=== PATIENT | female | born 1975 | race Caucasian/White ===

== ENCOUNTER → 2019-10-18 08:08 | Outpatient (CLI) | payer BC, SELFPAY ==
--- NOTE | ~2019-10-18 | MMUS_ITS ---
EXAMINATION: MM diagnostic lydia LT w libby, US breast LT limited HISTORY: Follow-up left breast masses TECHNIQUE: Additional 3-D tomosynthesis images of the left breast were performed and synthetic 2-D im ages were generated. CAD analysis was submitted and interpreted. High resolution left breast ultrasou nd was performed. COMPARISON: None FINDINGS: MAMMOGRAPHIC FINDINGS: The breasts are extremely dense, which lowers the sensitivity of mammography. There is a benign-appea ring circumscribed radiolucent mass lower outer quadrant of the left breast measuring 1 cm greatest d imension. No suspicious calcifications or architectural distortion. ULTRASOUND: Left breast ultrasound: At 4:00 4 cm from the nipple, there is a 10 x 9 x 8 mm cyst to the mass seen on mammogram. At 5:00, 3 cm from the nipple, there is a 6 mm cyst. No suspicious masses to suggest ma lignancy. IMPRESSION: 1. No evidence for malignancy in the left breast. 2. Routine yearly screening mammogram and regular clinical breast examination are recommended. BI-RADS Category 2: Benign finding(s). Reviewed, dictated and finalized at location A. SPORTATION MODELER IMPRESSION: 1. No evidence for malignancy in the left breast. 2. Routine yearly screening mammogram and regular clinical breast examination a re recommended. BI-RADS Category 2: Benign finding(s).
== END ==
PROVIDERS: PCP Family Medicine; Visit Provider Obstetrics & Gynecology Gynecology
DX: R92.8 Other abnormal and inconclusive findings on diagnostic imaging of breast (principal)
CPT/HCPCS: 76642; 77061; 77065; G0279

== ENCOUNTER → 2020-06-12 16:20 | Outpatient (CLI) | payer BC, SELFPAY ==
--- NOTE | ~2020-06-12 | MM_ITS ---
EXAMINATION: MM screening lydia BI w libby HISTORY: Screening mammogram TECHNIQUE: Craniocaudal and mediolateral oblique 3-D tomosynthesis images were obtained and synthetic 2-D images were generated. CAD analysis was submitted and interpreted. COMPARISON: 10/18/2019 diagnostic left digital mammogram and limited left breast ultrasound 04/17/2019 diagnostic left digital mammogram and limited left breast ultrasound 04/12/2019 bilateral digital screening mammogram 02/14/2018, 12/03/2016 bilateral digital screening mammogram examinations BREAST PARENCHYMAL COMPOSITION: The breasts are heterogeneously dense, which may obscure small masses . FINDINGS: Numerous bilateral benign calcifications are again noted. There is an approximately 10 mm circumscribed opacity in the posterior aspect of the lower outer left breast corresponding to the 4:00 10 mm cyst noted on 10/18/2019 limited left breast ultrasound examin ation. The mammographic features are benign and the lesion is stable since 10/18/2019. There is no nakita dence of suspicious mass, calcification, or architectural distortion to suggest malignancy in either breast. There has been no suspicious interval change. IMPRESSION: 1. No mammographic evidence of malignancy. 2. Recommend routine screening mammography in one year. BI-RADS Category 2: Benign finding(s). Reviewed, dictated and finalized at location A.
== END ==
PROVIDERS: PCP Family Medicine; Visit Provider Obstetrics & Gynecology Gynecology
DX: Z12.31 Encounter for screening mammogram for malignant neoplasm of breast (principal)
CPT/HCPCS: 77063; 77067

== ENCOUNTER 2020-09-12 02:55 | Emergency (ER) | payer BC, SELFPAY ==
--- NOTE | ~2020-09-12 | XR_ITS ---
EXAMINATION: XR chest 1V portable EXAM DATE: 09/12/2020 03:28 INDICATION: Midsternal chest pain. TECHNIQUE: Portable AP frontal chest x-ray was obtained. Comparison is made to prior examination from 10/16/2014. FINDINGS: The lungs are clear. There are no pleural effusions. The cardiomediastinal silhouette is within normal limits. There is no pneumothorax suspected. The bones and soft tissues are unremarkab le. IMPRESSION: No acute cardiopulmonary findings. Reviewed, dictated and finalized at location A. E TAMPER
[2020-09-12 03:01] VITALS: BP 124/61; PULSE 95; RESP 20; TEMP 36.8; O2SAT 100
[2020-09-12 03:07] VITALS: PULSE 98
--- NOTE | 2020-09-12 03:08 | ECG_ITS ---
Measurements Intervals [place] Rate: 91 P: 45 VT: 105 QRS: 63 QRSD: 92 T: 30 QT: 351 QTc: 433 Interpretive Statements SINUS RHYTHM WITH SHORT VT INTERVAL BORDERLINE T WAVE ABNORMALITY- ANT/INF LEADS BASELINE ARTIFACT- II, III BORDERLINE ECG Electronically Signed On 09-12-2020 7:13:03 WEBSPHERE DEVELOPER by Aram Gongora D.O.
--- NOTE | 2020-09-12 03:12 | ED.CHESTPAIN ---
HPI - Chest Pain General Chief Complaint: Chest Pain Stated Complaint: sob Time Seen by Provider: 09/12/20 02:58 Source: patient Mode of arrival: ambulatory Limitations: no limitations History of Present Illness HPI narrative: A 45-year-old female presents to the emergency department [facility] with complaints of a burning chest pain going from her upper abdomen to her neck. Patient does state that there was some associated shortness of breath with this. She states that she has never had anything like this before. Patient does note that this started after she went to bed. Patient does note that she drinks 3 white claws before going to bed. She denies any cardiac history. Patient also denies any known cardiac history in her family members. She does state that she was also feeling quite anxious and thinks that anxiety may have been contributing. Related Data Home Medications Medication Instructions Recorded Confirmed diclofenac sodium PO 09/12/20 Allergies Allergy/AdvReac Type Severity Reaction Status Date / Time propoxyphene AdvReac Mild NAUSEA AND Verified 09/12/20 03:19 VOMITING Review of Systems Review of Systems: Narrative: CONSTITUTIONAL: Denies fever, chills, or sweats. EYES: Denies visual changes, redness, or discharge. ENT: Denies rhinorrhea, congestion, sore throat, or otalgia. CARDIOVASCULAR: Denies palpitations, or edema. Endorses burning chest pain RESPIRATORY: Denies cough or dyspnea. GASTROINTESTINAL: Denies abdominal pain, nausea, vomiting, or diarrhea. GENITOURINARY: Denies dysuria or hematuria. SKIN: Denies rash or itching. MUSCULOSKELETAL: Denies back pain, joint pain, or myalgia. NEUROLOGIC: Denies headache, numbness, dizziness, or weakness. PSYCHIATRIC: Denies anxiety or depression. [facility] Family History Family History Father Hypertension Social History Social History Smoking status: Never smoker Second hand tobacco smoke exposure: No Alcohol intake: current Gender identity (if verbalized by the patient): Female Exam Narrative: Exam Narrative: GENERAL: Well-appearing, well-nourished, and in no acute distress. HEAD: Normocephalic, atraumatic. EYES: PERRLA and EOMI. ENT: Nares clear, no rhinorrhea or epistaxis. Mucous membranes moist. Oropharynx without tonsillar hypertrophy exudate or other lesions. Bilateral TMs pearly sanchez nonbulging NECK: Supple. No adenopathy or masses. No carotid bruits or JVD CHEST: Clear to auscultation. No respiratory distress. No wheezes rales or rhonchi HEART: Regular rate and rhythm. No murmur heard. Normal peripheral pulses. ABDOMEN: Soft, nontender, nondistended, normal active bowel sounds. EXTREMITIES: Normal range of motion. No edema. SKIN: Warm, dry, no rash. NEURO: No focal deficits. Alert and oriented x3. PSYCH: Normal mood and affect. Course Reevaluation(s) Reevaluation #1: Patient resting comfortably at this time. Provided care update and reevaluation. She noted after the medication she is feeling somewhat better. Informed her of her negative work-up. Did discuss gastritis, likely secondary to long-term NSAID use. Patient was given recommendations and instructed to follow-up with her primary care physician. Time: 03:59 Vital Signs Vital signs: Vital Signs Temperature 36.8 C 09/12/20 03:01 Pulse Rate 95 09/12/20 03:01 Respiratory Rate 20 09/12/20 03:01 Blood Pressure 124/61 09/12/20 03:01 Pulse Oximetry 100 09/12/20 03:01 Temperature 36.8 C 09/12/20 03:01 Pulse Rate 98 09/12/20 03:07 Respiratory Rate 20 09/12/20 03:01 Blood Pressure 124/61 09/12/20 03:01 Pulse Oximetry 100 09/12/20 03:01 MDM - Chest Pain MDM Narrative Medical decision making narrative: In brief this 45-year-old female presented to the emergency department with complaints of chest pain and some shortness of breath. Af
[2020-09-12] MEDS: BELLADONNA ALK/PHENOB ELIX 10 ML, MAG HYDROX/ALUMINUM HYD/SIMETH 30 ML, LIDOCAINE HCL 2... PO (03:20)
[2020-09-12 03:25] LABS: Basophils Absolute Auto 0.1 K/mm3 (0.0-0.1); Basophils Percent Auto 0.7 % (0.2-1.2); Eosinophils Absolute Auto 0.2 K/mm3 (0-0.3); Eosinophils Percent Auto 2.4 % (0-4.4); Immature Granulocyte Absolute 0.01 K/mm3 (0.00-0.031); Immature Granulocyte Percent A 0.1 % (0-0.5); Lymphocytes Absolute Auto 2.52 K/mm3 (0.9-3.2); Lymphocytes Percent Auto 35.4 % (18.3-44.2); Mean Corpuscular HGB Conc 32.4 g/dl (32-36); Mean Corpuscular Hemoglobin 28.6 pg (26-34); Mean Corpuscular Volume 88.1 fl (80-100); Mean Platelet Volume 11.2 fl (7.4-10.4); Monocytes Absolute Auto 0.5 K/mm3 (0.1-0.6); Monocytes Percent Auto 6.9 % (2.6-8.5); Neutrophils Absolute Auto 3.9 K/mm3 (1.3-6.7); Neutrophils Percent Auto 54.5 % (45.5-73.1); Platelet Count Result 196 k/mm3 (150-375); Red Cell Distribution Width 12.8 % (11.5-14.5); White Blood Count 7.1 K/mm3 (4.5-10.0)
[2020-09-12 03:39] LABS: Alanine Aminotransferase 19 U/L (4-35); Albumin Level 4.1 g/dL (3.5-5.1); Alkaline Phosphatase 61 U/L (38-126); Anion Gap 6 mmol/L (8-16); Aspartate Amino Transferase 26 U/L (14-36); Bilirubin,Total 0.3 mg/dL (0.2-1.3); Blood Urea Nitrogen 21 mg/dL (7-17); Calcium 8.6 mg/dL (8.4-10.2); Carbon Dioxide 29 mmol/L (22-30); Chloride 102 mmol/L (98-107); Estimated CRCL calculation 60 ml/min; Estimated Glomerular Filt Rate > 60; Glucose 111 mg/dL (65-105); Lipase 170 U/L (23-300); Potassium 3.5 mmol/L (3.4-5.0); Sodium 137 mmol/L (137-145)
--- NOTE | 2020-09-12 03:49 | PC.NURSE ---
Pt states her chest pain has resolved, states continues to have slight burning to her throat. Made aware of pending results.
[2020-09-12 03:51] LABS: Troponin I < 0.012 ng/mL (0.000-0.034)
== END 2020-09-12 04:02 | disposition home or self-care (01) ==
PROVIDERS: Emergency Provider Emergency Medicine; PCP Family Medicine
DX: R07.9 Chest pain, unspecified (principal); K21.9 Gastro-esophageal reflux disease without esophagitis; R94.31 Abnormal electrocardiogram [ECG] [EKG]
CPT/HCPCS: 36415; 71045; 80053; 83690; 84484; 85025; 93005; 99284; A9270

== ENCOUNTER → 2021-03-06 14:29 | Outpatient (CLI) | payer BC, SELFPAY ==
--- NOTE | ~2021-03-06 | MMUS_ITS ---
EXAMINATION: MM diagnostic lydia BI w libby, US breast RT limited HISTORY: Pain of the lower inner right breast TECHNIQUE: Craniocaudal, mediolateral, and mediolateral oblique 3-D tomosynthesis images of the brefarhad ts were performed and synthetic 2-D images were generated. CAD analysis was submitted and interpreted . High resolution limited right breast ultrasound was performed. COMPARISON: 06/12/2020, 10/18/2019, 04/17/2019, 04/12/2019, 02/14/2018 BREAST PARENCHYMAL COMPOSITION: The breasts are extremely dense, which lowers the sensitivity of mamm ography. FINDINGS: MAMMOGRAPHIC FINDINGS: There is no evidence of suspicious mass, calcification, or architectural distortion in either breast to suggest malignancy. There has been no suspicious interval change. No mammographic correlate is yvon ntified for the reported right breast pain. Scattered benign-appearing calcifications are present. ULTRASOUND: There is no evidence of focal abnormal solid or cystic mass in the vicinity of the patient's right br east pain. IMPRESSION: 1. No specific mammographic or sonographic correlate is identified for the patient's right breast arjun n. Further evaluation at this time should be based on clinical assessment. Continued follow-up physic al examination is recommended. 2. Recommend routine screening mammography in one year. BI-RADS Category 2: Benign finding(s). Reviewed, dictated and finalized at location A. IMPRESSION: 1. No specific mammographic or sonographic correlate is identified for the ebenezer ent's right breast pain. Further evaluation at this time should be based on cli nical assessment. Continued follow-up physical examination is recommended. 2. Recommend routine screening mammography in one year. BI-RADS Category 2: Benign finding(s).
== END ==
PROVIDERS: Visit Provider Nurse Practitioner
DX: N64.4 Mastodynia (principal)
CPT/HCPCS: 76642; 77062; 77066; G0279

== ENCOUNTER 2021-06-25 00:46 | Day surgery (SDC) | payer BC, SELFPAY ==
[2021-06-16 15:08] VITALS: BMI 26.1
--- NOTE | 2021-06-25 12:10 | WPDGICN ---
Assessment and Plan Assessment and plan (1) Family history of colonic polyps: Code(s): Z83.71 - Family history of colonic polyps Status: Acute Assessment and Plan: Patient presents for screening colonoscopy. She has a family history of colon polyps in her mother. Plan is for colonoscopy now may need to consider this at 5 years in the future given this history. Further recommendations will be given after endoscopy. GI Consult Note Consult date/time: 06/25/21 12:10 HPI: Leila Lee is a 46 year old female Presents for screening colonoscopy. She reports that her current weight appetite bowel movements normal. She denies abdominal pain. She has had no bleeding. Family history is significant that her mother had colon polyps. Patient presents today for screening colonoscopy. Review of Systems Review of Systems: All systems reviewed & are unremarkable except as noted in HPI and below PMFSH Family History Family History Father Hypertension Social History Social History Smoking status: Never smoker Second hand tobacco smoke exposure: No Alcohol intake: current Drinks per week: 3 Substance use: never Substance use type: does not use Living arrangements: with family Gender identity (if verbalized by the patient): Female Spiritual care concerns: No Meds Home Medications and Allergies Home Medications Medication Instructions Recorded Confirmed Type No Home Medications 06/16/21 06/16/21 History Allergies Allergy/AdvReac Type Severity Reaction Status Date / Time propoxyphene AdvReac Mild NAUSEA AND Verified 06/25/21 11:57 VOMITING Exam Narrative: Physical exam reveals patient be alert. Vital signs stable. HEENT exam is unremarkable. Patient is anicteric. Lungs are clear to auscultation and percussion. Heart is without murmur or extra sounds. Abdominal exam bowel sounds present soft nontender with no hepatosplenomegaly. Digital external rectal exam normal.
[2021-06-25 12:30] VITALS: BP 116/67; PULSE 89; RESP 16; TEMP 36.2; O2SAT 100; BMI 23.6
[2021-06-25] MEDS: LACTATED RINGERS 1,000 ML 150 ML IV CONT (12:37)
--- NOTE | 2021-06-25 12:45 | WPDANESEPPF ---
Anes - Initial Pre Proc Eval Procedure: Operation Date: 06/25/21 13:00 Proposed Procedures p Screening Colonoscopy - Christiano Vicente MD Date/Time: 06/25/21 12:45 Surgeon: Christiano Vicente MD Pre Op Diagnosis: neoplasm screening Patient Data Age: 46 Gender: F Height: 1.63 m Weight: 62.5 kg Last Vital Signs Temp 36.2 C L 06/25/21 12:30 Pulse 89 06/25/21 12:30 Resp 16 06/25/21 12:30 BP 116/67 06/25/21 12:30 Pulse Ox 100 06/25/21 12:30 Allergies Allergy/AdvReac Type Severity Reaction Status Date / Time propoxyphene AdvReac Mild NAUSEA AND Verified 06/25/21 11:57 VOMITING Home Medications Medication Instructions Recorded Confirmed Type No Home Medications 06/16/21 06/16/21 History Patient hx anesthesia problems: none Family hx anesthesia problems: none Results Review: All pre-operative results and documents have been reviewed as part of the pre-operative evaluation. PMFSH Family History Family History Father Hypertension Social History Social History Smoking status: Never smoker Second hand tobacco smoke exposure: No Alcohol intake: current Drinks per week: 3 Substance use: never Substance use type: does not use Living arrangements: with family Gender identity (if verbalized by the patient): Female Sexual Orientation (if Verbalized by the Patient): Straight or Heterosexual Spiritual care concerns: No Anes - Eval Final PreProcedure Day of Procedure 06/25/21 12:45 Patient weight: normal Heart: regular rate and rhythm Lungs: clear to auscultation and normal air movement Airway: Mallampati scale class II Neurological: alert and oriented Last oral intake: >/= 8 hours ASA classification: I Emergent: no Anesthetic plan: proceed Anesthesia type and monitoring: general GIVS Results Review: All pre-operative results and documents have been reviewed as part of the pre-operative evaluation. Informed Consent: The patient's anesthetic plan and its attendant risks and benefits were discussed with the patient/family/POA. Questions were solicited and answers provided to the satisfaction of the patient/family/POA.
[2021-06-25 14:02] VITALS: BP 91/53; PULSE 85; RESP 16; O2SAT 100
[2021-06-25 14:12] VITALS: BP 93/59; PULSE 77; RESP 16; O2SAT 100
[2021-06-25 14:23] VITALS: BP 98/64; PULSE 76; RESP 19; O2SAT 100
== END 2021-06-25 14:35 | disposition home or self-care (01) ==
PROVIDERS: PCP Family Medicine; Visit Provider Internal Medicine Gastroenterology
PROC: 0DJD8ZZ Inspection of Lower Intestinal Tract, Via Natural or Artificial Opening Endoscopic (ICD-10-PCS; CPT 45378; principal; 2021-06-25 13:00)
DX: Z12.11 Encounter for screening for malignant neoplasm of colon (principal); D12.5 Benign neoplasm of sigmoid colon; K64.8 Other hemorrhoids; Z83.71 Family history of colonic polyps
CPT/HCPCS: 45385; 88305; J2704; J7120

== ENCOUNTER → 2022-04-02 15:25 | Outpatient (CLI) | payer BC, SELFPAY ==
--- NOTE | ~2022-04-02 | MM_ITS ---
EXAMINATION: MM screening [facility] BI w libby HISTORY: Screening mammogram TECHNIQUE: Craniocaudal and mediolateral oblique 3-D tomosynthesis images were obtained and synthetic 2-D images were generated. CAD analysis was submitted and interpreted. COMPARISON: 03/06/2021, 06/12/2020, 10/18/2019, 04/17/2019, 04/12/2019 BREAST PARENCHYMAL COMPOSITION: The breasts are extremely dense, which lowers the sensitivity of mamm ography. FINDINGS: Scattered benign-appearing calcifications are present. Waxing and waning bilateral breast m asses are consistent with benign findings. There is no suspicious mass, calcification, or architectur al distortion to suggest malignancy in either breast. There has been no suspicious interval change. IMPRESSION: 1. No mammographic evidence of malignancy. 2. Recommend routine screening mammography in one year. BI-RADS Category 2: Benign finding(s). Reviewed, dictated and finalized at location A.
== END ==
PROVIDERS: PCP Family Medicine; Visit Provider Obstetrics & Gynecology Gynecology
DX: Z12.31 Encounter for screening mammogram for malignant neoplasm of breast (principal)
CPT/HCPCS: 77063; 77067

== ENCOUNTER → 2022-10-15 12:29 | Outpatient (CLI) | payer BC, SELFPAY ==
--- NOTE | ~2022-10-15 | US_ITS ---
US breast BI complete DATE: 10/15/2022 12:59 INDICATION: Waxing and waning bilateral breast masses consistent with benign findings reported on 03/22 bilateral screening mammogram examination TECHNIQUE: Real-time imaging of both complete breasts including all 4 quadrants and subareolar areas COMPARISON: 04/02/2022 bilateral screening mammogram FINDINGS: No suspicious mass or shadowing of either breast is detected. Bilateral renal cysts: Right breast: 12:00 1 cm from nipple: 6 x 9 x 10 mm cyst 3:00 3 cm from nipple: 4 x 6 mm cyst 5:00 1 cm from nipple: 3 x 5 mm cyst Prominent subareolar ducts Left breast: 12:00 1 cm from nipple: 6.9 mm cyst 2:00 subareolar area: 12 x 18 mm simple cyst 4:00 6 cm from nipple: 1 x 1.5 cm cyst 11:00 2 cm from nipple: 5.5 x 7.7 mm cyst 3.5 mm subareolar cyst IMPRESSION: BI-RADS Category 2: Benign Recommendation: Routine mammographic screening Reviewed, dictated and finalized at Location A. Reviewed, dictated and finalized at location A. D HANDLER
== END ==
PROVIDERS: PCP Family Medicine; Visit Provider Advanced Practice Midwife
DX: R92.2 Inconclusive mammogram (principal)
CPT/HCPCS: 76641

== ENCOUNTER → 2023-07-18 13:02 | Outpatient (CLI) | payer BC, SELFPAY ==
--- NOTE | ~2023-07-18 | US_ITS ---
EXAMINATION: US pelvic complete DATE: 07/18/2023 13:24 INDICATION: Abnormal uterine bleeding Comparison: 12/15/2012 TECHNIQUE: Multiple transabdominal and endovaginal sonographic images of the pelvis performed. FINDINGS: The uterus measures 10 x 4.9 x 5.2 cm. There is a complex 1.6 x 1.6 x 1.9 cm endometrial ma ss. The endometrial complex measures 2.2 cm. The right ovary measures 2.7 x 2.1 x 3.1 cm and the left ovary measures 1.7 x 1.1 x 1.5 cm. There ar e small follicles in each ovary. Normal doppler signal in both ovaries. There is no free fluid in the pelvis. There are no abnormal masses seen on either side. IMPRESSION: 1. Thickened heterogeneous endometrium containing 1.9 cm mass. Considerations include submucosal fibr oid, polyp and endometrial carcinoma. Recommend clinical correlation. Reviewed, dictated and finalized at location B. ISION FARMING COORDINATOR IMPRESSION: 1. Thickened heterogeneous endometrium containing 1.9 cm mass. Considerations i nclude submucosal fibroid, polyp and endometrial carcinoma. Recommend clinical correlation.
== END ==
PROVIDERS: PCP Advanced Practice Midwife; Visit Provider Advanced Practice Midwife
DX: N93.8 Other specified abnormal uterine and vaginal bleeding (principal); N92.0 Excessive and frequent menstruation with regular cycle
CPT/HCPCS: 76856

== ENCOUNTER 2023-09-05 01:05 | Day surgery (SDC) | payer OTHER, SELFPAY ==
--- NOTE | 2023-08-24 13:05 | SUR.PREOP ---
Report to the Outpatient Waiting Room, entrance under the green pavilion located off [facility], at time 0815 on date 09/05/23. Planned Procedure Time: 1015. Time changes happen often and if your time is changed the preop area will call you the afternoon before. - You and your visitor will be asked to self-screen and do not enter if you have any COVID symptoms. - A mask is optional within the hospital at this time. Patients may have clear liquids (water, carbonated beverages, clear teas, apple juice) until 3 hours prior to surgery with a maximum of 20 ounces. - NO CLEAR LIQUIDS AFTER 0715 - No food from midnight until time of surgery - Infants may have breast milk until 4 hours before surgery, formula 6 hours prior to surgery. - Children will be allowed to drink immediately following surgery. If applicable, please bring a bottle or sippy cup to assist with drinking. Juice, water, soda, and popsicles are readily available. For infants on formula, please bring formula the day of surgery. Pacifiers are allowed. Take the following medications with a SIP of water the morning of surgery: N/A DO NOT STOP ANY OF YOUR OTHER PRESCRIPTION MEDICATIONS PRIOR TO SURGERY ?EXCEPT THE FOLLOWING Medications to discontinue per physician VITAMIN Date to take last dose 09/01/23 Please no make-up, nail nauruan, hairspray, perfume, deodorant, or body powder the day of surgery. No jewelry (including any body piercings) or valuables the day of surgery, leave them at home. Please take a shower or bath the night before, or the morning of, surgery with an antibacterial soap. Wear comfortable, loose fitting clothing. Children are encouraged to wear pajamas. - Jewelry must be removed prior to entering the operating room. Rings and piercings that are not removed may be cut off. - The hospital will not accept responsibility for valuables. - Please leave all valuables, including medications, at home the day of surgery. If you are going home after surgery, a licensed oil transport driver must drive you home. - NO public transportation without another adult if you receive anesthesia. - We recommend that an adult stay with you for 24 hours following discharge. - We also recommend that you do not drive, make important decision, drink alcoholic beverages, or take any drugs that were not prescribed by your health care provider for at least 24 hours after your discharge time. For Pediatric surgeries, we recommend two adults accompany the child home. Follow any additional instructions given to you from your surgeon. If you or anyone in your household have experienced Covid symptoms in the past week, please notify your surgeon or the nurse liaison at the phone number below for possible testing. Telephone instructions given to JARRED MIRZA and asked if any additional questions and then verbalized understanding. Patient advised to call surgeon office or pre surgery nurse liaison [phone] if any additional questions.
[2023-08-24 13:20] VITALS: BMI 29.2
--- NOTE | 2023-09-05 07:34 | WPDHPUPDATE1 ---
History and Physical Update Update Date/Time: 09/05/23 07:34 History and Physical has been reviewed, including an updated exam of the patient. There are NO changes in the patient's condition. Risks, benefits, and alternatives have been discussed and questions answered. Patient agrees to proceed with procedure.
--- NOTE | 2023-09-05 07:34 | PM.HPGS ---
History of Present Illness History of Present Illness Consent: Risks, benefits, and alternatives have been discussed and questions answered. Patient agrees to proceed with procedure. Chief complaint: Menorrhagia Narrative: Leila Lee is a 48 year old female with irregular and heavy cycles over the past several months. Pelvic ultrasound shows a 1.5x1.9cm complex endometrial mass. It was recommended to undergo D&C hysteroscopy for further evaluation. Patient voices understanding and agrees to proceed. Review of Systems Review of Systems: not repeated day of surgery; patient states no changes in status PMFSH Past Medical History Medical History (Updated 09/05/23 @ 07:39 by Jaci Art MD) GERD without esophagitis Prediabetes Spontaneous x3 D&C required x2 Vitamin D deficiency Surgical History Surgical History (Updated 09/05/23 @ 07:38 by Jaci Art MD) deliv NOS-unsp X2 History of bilateral tubal ligation 2012 with History of D&C 2006 and 2011 Family History Family History Father Hypertension Mother Thyroid disease Social History Social History Smoking status: Never smoker Second hand tobacco smoke exposure: No Alcohol intake: current Drinks per week: 3 Substance use: never Substance use type: does not use Lack of Transportation: No Lack of Food: Never True Current Housing: I Have Housing Concerned About Future Housing: No Difficulty Paying Gas/Electric Bills: No Difficulty Paying for Meds: No Currently Unemployed: No Education: Bachelor's Degree Difficulty w/ Childcare or Family Care: No Living arrangements: with family Occupation/Education: occupation Gender identity (if verbalized by the patient): Female Sexual Orientation (if Verbalized by the Patient): Straight or Heterosexual Spiritual care concerns: No Agree to blood products: Yes Meds Home Medications and Allergies Home Medications Medication Instructions Recorded Confirmed Type cholecalciferol (vitamin D3) 125 250 mcg PO .QOD 08/03/23 08/24/23 History mcg (5,000 unit) capsule omeprazole 40 mg capsule,delayed 40 mg PO DAILY #90 caps 08/03/23 08/24/23 Rx release loratadine 10 mg tablet (Claritin) 10 mg PO DAILY 08/24/23 08/24/23 History Allergies Allergy/AdvReac Type Severity Reaction Status Date / Time propoxyphene AdvReac Mild NAUSEA AND Verified 08/03/23 15:22 VOMITING Exam Const: General: healthy appearing and alert Orientation/consciousness: patient oriented x3 Resp: Effort & Inspection: normal respiratory effort GI: GI Palp: Yes Soft to palpation, No Tenderness to palpation present (GI) and No Palpable mass present : External Female Exam: normal external appearance Speculum Exam - Vagina: normal appearance of the vagina and normal vaginal discharge Speculum Exam - Cervix: normal appearance of the cervix Bimanual exam- vagina & uterus: uterine size normal and consistency normal Bimanual Exam- Adnexa, other: normal adnexae and No adnexal tenderness Neuro: General: patient oriented x3 Assessment and Plan Assessment and plan (1) Menorrhagia: Code(s): N92.0 - Excessive and frequent menstruation with regular cycle Status: Acute Assessment and Plan: plan to proceed with D&C hysteroscopy
[2023-09-05 07:49] VITALS: BP 113/71; PULSE 90; RESP 18; TEMP 36.2; O2SAT 100
[2023-09-05] MEDS: ACETAMINOPHEN 500 MG TABLET 1000 MG PO (08:01)
--- NOTE | 2023-09-05 08:54 | WPDANESEPPF ---
Anes - Initial Pre Proc Eval Procedure: Operation Date: 09/05/23 09:30 Proposed Procedures p Hysteroscopy Dilation and Curettage - Jaci Art MD Date/Time: 09/05/23 08:54 Surgeon: Jaci Art MD Pre Op Diagnosis: Menorrhagia Patient Data Age: 48 Gender: F Height: 1.63 m Weight: 78.6 kg Last Vital Signs Temp 36.2 C L 09/05/23 07:49 Pulse 90 09/05/23 07:49 Resp 18 09/05/23 07:49 BP 113/71 09/05/23 07:49 Pulse Ox 100 09/05/23 07:49 O2 Del Method Room Air 09/05/23 07:49 Allergies Allergy/AdvReac Type Severity Reaction Status Date / Time propoxyphene AdvReac Mild NAUSEA AND Verified 09/05/23 07:47 VOMITING Home Medications Medication Instructions Recorded Confirmed Type cholecalciferol (vitamin D3) 125 250 mcg PO .QOD 08/03/23 09/05/23 History mcg (5,000 unit) capsule omeprazole 40 mg capsule,delayed 40 mg PO DAILY #90 caps 08/03/23 09/05/23 Rx release loratadine 10 mg tablet (Claritin) 10 mg PO DAILY 08/24/23 09/05/23 History Patient hx anesthesia problems: none Family hx anesthesia problems: none Results Review: All pre-operative results and documents have been reviewed as part of the pre-operative evaluation. [facility], [facility] Past Medical History Medical History (Updated 09/05/23 @ 07:39 by Jaci Art MD) GERD without esophagitis Prediabetes Spontaneous x3 D&C required x2 Vitamin D deficiency Surgical History Surgical History (Updated 09/05/23 @ 07:38 by Jaci Art MD) deliv NOS-unsp X2 History of bilateral tubal ligation 2012 with History of D&C 2006 and 2011 Family History Family History Father Hypertension Mother Thyroid disease Social History Social History Smoking status: Never smoker Second hand tobacco smoke exposure: No Alcohol intake: current Drinks per week: 3 Substance use: never Substance use type: does not use Lack of Transportation: No Lack of Food: Never True Current Housing: I Have Housing Concerned About Future Housing: No Difficulty Paying Gas/Electric Bills: No Difficulty Paying for Meds: No Currently Unemployed: No Education: Bachelor's Degree Difficulty w/ Childcare or Family Care: No Living arrangements: with family Occupation/Education: occupation Gender identity (if verbalized by the patient): Female Sexual Orientation (if Verbalized by the Patient): Straight or Heterosexual Spiritual care concerns: No Agree to blood products: Yes Anes - Eval Final PreProcedure Day of Procedure 09/05/23 08:54 Patient weight: overweight Heart: regular rate and rhythm Lungs: clear to auscultation Airway: Mallampati scale class II Neurological: alert and oriented Last oral intake: >/= 8 hours ASA classification: II Emergent: no Anesthetic plan: proceed Anesthesia type and monitoring: general GIVS and standard monitoring Results Review: All pre-operative results and documents have been reviewed as part of the pre-operative evaluation. Informed Consent: The patient's anesthetic plan and its attendant risks and benefits were discussed with the patient/family/POA. Questions were solicited and answers provided to the satisfaction of the patient/family/POA.
--- NOTE | 2023-09-05 10:13 | W.PM.PROC2 ---
Procedure Note - Detailed Date of Procedure 09/05/23 Pre-op Diagnosis Menorrhagia Post-op Diagnosis Same Procedure Performed D&C hysteroscopy with myomectomy Surgeon Jaci Art MD Anesthesia MAC Findings The uterus sounds to 8cm. There is a fibroid sessile on the posterior fundus. The remainder of the endometrium appears grossly normal. Description of Procedure The patient was taken to the operating room and placed under anesthesia in the dorsal lithotomy position. She was prepped and draped in the usual sterile fashion. [place] speculum was placed in the vagina and the cervix grasped on the left with a tenaculum. The uterus is sounded to 8cm. The diagnostic hysteroscope was placed with the above-stated findings. The Aveeta resection device is placed and as I was shaving the surface of the fibroid it continued to protrude more into endometrial cavity. I was able to get below the fibroid and start to shave off the base. I was not able to see the stalk. Once the fibroid was very rounded, very mobile, and on a small stalk, the hysteroscope was removed and the myoma graspers were used to grasp the remaining portion of the fibroid and remove it intact. The hysteroscope was replaced and the fibroid is noted to be gone in its entirety. The sharp curette is then used to curette the endometrium until a good uterine cry was noted in all areas. All instruments are removed. Sponge, needle, and instrument counts are correct per the OR staff. Patient is awakened from anesthesia and taken to recovery in stable condition. Estimated Blood Loss 5 Drains No Packing No Pathology Yes ( Endometrial shavings and curettings and myoma pieces) Complications No immediate complications Condition Stable Disposition PACU
[2023-09-05 10:14] VITALS: BP 110/75; PULSE 76; RESP 12; O2SAT 96
[2023-09-05] MEDS: LACTATED RINGERS 1,000 ML 30 ML IV CONT (10:14)
[2023-09-05 10:45] VITALS: BP 106/70; PULSE 62; RESP 16; O2SAT 100
[2023-09-05 11:15] VITALS: BP 102/76; PULSE 62; RESP 16
== END 2023-09-05 11:27 | disposition home or self-care (01) ==
PROVIDERS: PCP Family Medicine; Visit Provider Obstetrics & Gynecology Gynecology
PROC: 0U5B8ZZ Destruction of Endometrium, Via Natural or Artificial Opening Endoscopic (ICD-10-PCS; CPT 58563; principal; 2023-09-05 09:30)
DX: N92.0 Excessive and frequent menstruation with regular cycle (principal); K21.9 Gastro-esophageal reflux disease without esophagitis; E55.9 Vitamin D deficiency, unspecified
CPT/HCPCS: 58558; 88305; A9270; J1100; J1885; J2250; J2405; J2704; J3010; J7120

== ENCOUNTER → 2023-09-13 09:29 | Outpatient (CLI) | payer OTHER, SELFPAY ==
--- NOTE | ~2023-09-13 | MM_ITS ---
EXAMINATION: MM screening [facility] BI w libby HISTORY: Screening mammogram TECHNIQUE: Craniocaudal and mediolateral oblique 3-D tomosynthesis images were obtained and synthetic 2-D images were generated. CAD analysis was submitted and interpreted. COMPARISON: 04/02/2022, 03/06/2021, 06/12/2020, 10/18/2019 BREAST PARENCHYMAL COMPOSITION: The breasts are extremely dense, which lowers the sensitivity of mamm ography. FINDINGS: Waxing and waning bilateral breast masses are consistent with benign findings. No suspiciou s mass, calcification, or architectural distortion are identified in either breast to suggest maligna ncy. There has been no suspicious interval change. IMPRESSION: 1. No mammographic evidence of malignancy. 2. Recommend routine screening mammography in one year. BI-RADS Category 2: Benign finding(s). Reviewed, dictated and finalized at location A. ORIAL INTERN
== END ==
PROVIDERS: PCP Advanced Practice Midwife; Visit Provider Advanced Practice Midwife
DX: Z12.31 Encounter for screening mammogram for malignant neoplasm of breast (principal)
CPT/HCPCS: 77063; 77067

== ENCOUNTER 2023-10-04 08:33 | Outpatient (CLI) | payer OTHER, SELFPAY ==
--- NOTE | 2023-10-10 12:52 | WPDHOMESLEEP ---
Sleep Study - Home Unattended Date of Study: 10/04/23 Ordering Provider: Alden Gómez MD Interpreting Provider: Ping Edwards MD Home Sleep Study Type: Watch PAT Height: 1.63 m Weight: 79.379 kg Body Mass Index: 30.0 Neck Circumference (inches): 14.5 [place]: 3 Reason for Sleep Study Snoring, excessive daytime sleepiness Sleep History Leila Lee is a 48-year-old woman with complaints of loud snoring, fatigue and excessive daytime sleepiness. She wants to be treated for her loud snoring so her can also get a good night of sleep. She never awakens from sleep short of breath. She frequently wakes at night with heartburn, belching or coughing.??She constantly snores, and constantly snores loudly enough that others complain. She frequently has trouble sleeping when she has a cold. She rarely wakes up gasping for breath during the night. She never has breathing problems at night reported to her by others. She rarely sweats excessively at night. She never notices her heart pounding or beating irregularly during the night. She rarely falls asleep during the day. She never falls asleep involuntarily, although she rarely falls asleep while driving. She never experiences loss of muscle tone with strong emotion. She never feels paralyzed on waking or falling asleep. She occasionally experiences vivid dreams upon waking or falling asleep. She never feels afraid of going to sleep. She rarely has nightmares. She occasionally recalls her dreams. She occasionally has thoughts racing through her mind. She rarely feels sad or depressed. She occasionally feels anxiety. She never notices parts of her body jerk. She never kicks during the night. She never feels crawling or aching feelings in her legs. She never feels leg pain at night. She never has morning jaw pain, though frequently grinds her teeth at night. She never feels bothered by pain during the day, is never awakened by pain during the night. She never wakes up feeling stiff in the morning, never wakes feeling sore or achy in the morning. She never awakens with pain in her neck, spine, or joints. Normal bedtime is 10:00 p.m., falling asleep within 15 minute, waking between 3 and 4 times at night, holes over, goes to the bathroom, gets drink of water and checks the clock, returning to sleep within 5 minutes.. She wakes at 5:30 a.m., reports getting between 6 and 7 hours of sleep per night. her weekend schedule is similar, bedtime is 11:00 p.m. and she sleeps later, wakes between 8:00 am to 9:00 a.m. Sometimes she awakens due to having an extremely dry mouth. She does not generally take naps. A short nap lasting 10-15 minutes is not refreshing. She only occasionally awakens feeling refreshed. Habits:??Tobacco: Never smoker Caffeine: none Alcohol: none Recreational substances: none PMFSH Past Medical History Medical History Dyslipidemia GERD without esophagitis Prediabetes Spontaneous x3 D&C required x2 Vitamin D deficiency Surgical History Surgical History deliv NOS-unsp X2 History of bilateral tubal ligation 2012 with History of D&C 2006 and 2011 History of D&C (~08/2023) D&C hysteroscopy with myomectomy Family History Family History Father Hypertension Mother Thyroid disease Social History Social History Smoking status: Never smoker Second hand tobacco smoke exposure: No Alcohol intake: current Drinks per week: 3 Substance use: never Substance use type: does not use Lack of Transportation: No Lack of Food: Never True Current Housing: I Have Housing Concerned About Future Housing: No Difficulty Paying Gas/Electric Bills: No Difficulty Paying for Meds: No Cur
== END 2023-10-06 07:30 | disposition home or self-care (01) ==
PROVIDERS: PCP Family Medicine; Visit Provider Family Medicine
DX: R40.0 Somnolence (principal); G47.33 Obstructive sleep apnea (adult) (pediatric)
CPT/HCPCS: 95800

== ENCOUNTER 2024-03-08 11:43 | Outpatient (CLI) | payer OTHER, SELFPAY ==
--- NOTE | ~2024-03-08 | MMUS_ITS ---
EXAMINATION: MM diagnostic [facility] BI w libby, US breast BI complete HISTORY: Dense breasts. TECHNIQUE: Additional 3-D tomosynthesis images of the breasts were performed and synthetic 2-D images were generated. CAD analysis was submitted and interpreted. High resolution bilateral complete breas t ultrasound was performed. COMPARISON: Comparison to multiple prior studies sequentially, with oldest reviewed study dated 04/17. BREAST PARENCHYMAL COMPOSITION: Dense: The breasts are extremely dense, which lowers the sensitivity of mammography. FINDINGS: MAMMOGRAPHIC FINDINGS: The right breast is stable without evidence for malignancy. There is a new mass in the lower outer qu adrant of the left breast posteriorly containing layering calcification, consistent with benign fibro cystic disease. There are scattered benign bilateral breast calcifications. ULTRASOUND: Complete bilateral US of all 4 quadrants of the breasts and retroareolar region was reviewed. Right breast ultrasound: 11:00, 4 cm from the nipple, there is a 1.2 cm complicated cyst. No suspicio us masses to suggest malignancy. Left breast: At 12:00, 7 cm from the nipple there is an irregular shaped hypoechoic mass with interna l vascularity measuring 1.8 x 1.4 cm. At 1:00, 8 cm from the nipple there is a small oval hypoechoic 7 mm mass, likely a benign cysts. There are left low level internal echoes. No significant posterior features or internal vascularity. At 3:00 there is a round 11 mm mass with low level internal echoes, posterior enhancement and no internal vascularity, likely benign. At 9:00, 6 cm from the nipple, the re is an oval hypoechoic 7 mm mass, likely a benign complicated cyst. At 11:00, 4 cm from the nipple, there is a 9 mm cyst. Near the nipple there is a 2.4 cm cyst. IMPRESSION: 1. Irregular shaped hypoechoic 1.8 cm mass of the left breast at 12:00, 7 cm from the nipple with int ernal vascularity. Additional probable benign left breast masses are seen. 2. Ultrasound-guided left breast biopsy recommended. BI-RADS category 4, suspicious findings. Reviewed, dictated and finalized at location B. IMPRESSION: 1. Irregular shaped hypoechoic 1.8 cm mass of the left breast at 12:00, 7 cm fr om the nipple with internal vascularity. Additional probable benign left breast masses are seen. 2. Ultrasound-guided left breast biopsy recommended. BI-RADS category 4, suspicious findings.
== END 2024-03-08 11:44 ==
PROVIDERS: PCP Family Medicine; Visit Provider Obstetrics & Gynecology Gynecology
DX: R92.2 Inconclusive mammogram (principal)
CPT/HCPCS: 76641; 77062; 77066; G0279

== ENCOUNTER 2024-04-05 21:24 | Emergency (ER) | payer OTHER, SELFPAY ==
--- NOTE | ~2024-04-05 | XR_ITS ---
EXAMINATION: XR chest 2V DATE: 04/05/2024 22:09 INDICATION: Shortness of breath and palpitations TECHNIQUE: frontal and lateral views of the chest were obtained. COMPARISON: Chest radiograph dated 09/12/2020 FINDINGS: The lungs remain clear with no focal airspace opacities, pulmonary edema, pleural effusion or pneumot horax. The cardiomediastinal silhouette is normal. Mild thoracic spondylosis. IMPRESSION: 1. No acute cardiopulmonary disease. Reviewed, dictated and finalized at location A.
--- NOTE | 2024-04-05 21:30 | ECG_ITS ---
Test Date: 2024-04-05 21:32:40 Measurements Intervals [place] Rate: 87 P: 51 NM: 143 QRS: 55 QRSD: 104 T: 59 QT: 364 QTc: 440 Interpretive Statements SINUS RHYTHM LOW QRS VOLTAGE IN PRECORDIAL LEADS [QRS DEFLECTION < 1.0 mV IN CHEST LEADS] BORDERLINE ECG No previous ECG available for comparison Electronically Signed On 04-06-2024 14:57:02 CDT by Kartik Jacob M.D.
[2024-04-05 21:31] VITALS: BP 124/78; PULSE 88; RESP 18; TEMP 36.8; O2SAT 100
--- NOTE | 2024-04-05 21:54 | ED.ARRPALP ---
HPI - Arrhythmia/Palpitations General Chief Complaint: Arrhythmia/Palpitations Stated Complaint: RACING HEART, DIZZINESS, NAUSEA Time Seen by Provider: 04/05/24 21:27 Source: patient Mode of arrival: EMS Limitations: no limitations History of Present Illness HPI narrative: Patient is a 48-year-old female who presents to the ED via EMS with report of palpitations. Patient reports she was at the grocery store with her children tonight when she began feeling racing heart palpitations. She did not check her pulse or her Apple watch. She began feeling dizzy, lightheaded, near syncopal, and short of breath and left the store early. She attempted to go to an urgent care and was referred here for further evaluation. Patient states she has otherwise been in her normal state of health. She is feeling improved currently. She denies chest pain. Denies current palpitations or dizziness. She denies history of similar symptoms. denies history known atrial fibrillation or SVT, but states during her sleep study in October, she was noted to have an irregular rhythm. She wore a Holter monitor for 30 days and did not have any abnormal events. Related Data Home Medications Medication Instructions Recorded Confirmed cholecalciferol (vitamin D3) 125 250 mcg PO .QOD 08/03/23 09/26/23 mcg (5,000 unit) capsule loratadine 10 mg tablet (Claritin) 10 mg PO DAILY 08/24/23 09/26/23 Allergies Allergy/AdvReac Type Severity Reaction Status Date / Time propoxyphene AdvReac Mild NAUSEA AND Verified 04/05/24 21:35 VOMITING Review of Systems Review of Systems: CONSTITUTIONAL: Denies fever, chills, or sweats. ENT: Denies rhinorrhea, congestion, sore throat. CARDIOVASCULAR: See HPI. RESPIRATORY: See HPI. NEUROLOGIC: See HPI. All systems reviewed & are unremarkable except as noted in HPI and below PMFSH Past Medical History Medical History Dyslipidemia GERD without esophagitis Prediabetes Spontaneous x3 D&C required x2 Vitamin D deficiency Surgical History Surgical History deliv NOS-unsp X2 History of bilateral tubal ligation 2012 with History of D&C 2006 and 2011 History of D&C (~08/2023) D&C hysteroscopy with myomectomy Family History Family History Father Hypertension Mother Thyroid disease Social History Social History Smoking status: Never smoker Second hand tobacco smoke exposure: No Alcohol intake: current Drinks per week: 3 Substance use: never Substance use type: does not use Lack of Transportation: No Lack of Food: Never True Current Housing: I Have Housing Concerned About Future Housing: No Difficulty Paying Gas/Electric Bills: No Difficulty Paying for Meds: No Currently Unemployed: No Education: Bachelor's Degree Difficulty w/ Childcare or Family Care: No Living arrangements: with family Occupation/Education: occupation Gender identity (if verbalized by the patient): Female Sexual Orientation (if Verbalized by the Patient): Straight or Heterosexual Spiritual care concerns: No Agree to blood products: Yes Exam Narrative: GENERAL: Well appearing, well-nourished, non-toxic, in no acute distress. HEAD: Normocephalic, atraumatic. RESPIRATORY: Airway patent, respirations nonlabored. Clear to auscultation bilaterally, no rales, rhonchi, wheezing. CARDIOVASCULAR: Regular rate and rhythm without murmurs, rubs, or gallops. ABDOMINAL: Soft, nontender, nondistended. Normoactive BS. MUSCULOSKELETAL: Moves all extremities. No gross deformities. no lower extremity edema. No calf tenderness. SKIN: Warm, dry, normal color. NEURO: A&O X3. Speech clear. Cranial nerves II-XII grossly intact. Steady
[2024-04-05 22:36] LABS: Basophils Absolute Auto 0.1 K/mm3 (0.0-0.1); Basophils Percent Auto 0.6 % (0.2-1.2); Eosinophils Absolute Auto 0.1 K/mm3 (0-0.3); Eosinophils Percent Auto 1.2 % (0-4.4); Hemoglobin 10.9 g/dL (12.0-15.0); Immature Granulocyte Absolute 0.03 K/mm3 (0.00-0.031); Immature Granulocyte Percent A 0.3 % (0-0.5); Lymphocytes Absolute Auto 1.66 K/mm3 (0.9-3.2); Lymphocytes Percent Auto 19.3 % (18.3-44.2); Mean Corpuscular Hemoglobin 28.6 pg (26-34); Mean Corpuscular Volume 86.6 fl (80-100); Mean Platelet Volume 10.5 fl (7.4-10.4); Monocytes Absolute Auto 0.8 K/mm3 (0.1-0.6); Monocytes Percent Auto 9.2 % (2.6-8.5); Neutrophils Percent Auto 69.4 % (45.5-73.1); Platelet Count Result 204 k/mm3 (150-375); Red Blood Count 3.81 M/mm3 (4.2-5.4); Red Cell Distribution Width 14.2 % (11.5-14.5); White Blood Count 8.6 K/mm3 (4.5-10.0)
[2024-04-05] MEDS: SODIUM CHLORIDE 0.9% IV 1,000 ML 999 ML IV CONT (22:46)
[2024-04-05 22:47] VITALS: PULSE 90
[2024-04-05 22:47] LABS: INR 0.9
[2024-04-05 22:48] VITALS: BP 117/70; PULSE 87; RESP 18; O2SAT 99
[2024-04-05 22:52] LABS: Alanine Aminotransferase 22 U/L (6-35); Alkaline Phosphatase 81 U/L (38-126); Anion Gap 6 mmol/L (4-12); Aspartate Amino Transferase 22 U/L (14-36); Bilirubin,Total 0.2 mg/dL (0.2-1.3); Blood Urea Nitrogen 14 mg/dL (7-17); Calcium 8.8 mg/dL (8.4-10.2); Carbon Dioxide 28 mmol/L (22-30); Chloride 100 mmol/L (98-107); Estimated CRCL calculation 67 ml/min; Estimated Glomerular Filt Rate > 60; Glucose 133 mg/dL (65-110); Potassium 3.3 mmol/L (3.4-5.0); Sodium 134 mmol/L (137-145)
[2024-04-05 23:03] LABS: Troponin I < 0.012 ng/mL (0.000-0.034)
[2024-04-05 23:09] LABS: D Dimer < 0.27 ug/mL (<0.48)
[2024-04-06 00:22] LABS: Add Urine Microscopic? YES; Appearance Urine Clear (Clear); Bacteria Urine None Seen /hpf; Bilirubin Urine Negative (Negative); Blood Urine 3+ (Negative); Color Urine Yellow (Yellow); Glucose Urine UA Negative (Negative); Ketones Urine Negative (Negative); Leukocyte Esterase Ur Negative LEU/UL (Negative); Nitrate Urine Negative (Negative); Protein Urine Negative (Negative); RBC Urine 21-50 /hpf (0-2); Specific Grav Ur 1.009 (1.001-1.035); Squamous Epithelial Cell Urine None Seen /hpf (Few); Urobilinogen Urine 0.2 mg/dL (<2.0); WBC Urine 0-5 /hpf (0-3); pH Urine 5.5 (5.0-9.0)
[2024-04-06] MEDS: POTASSIUM CHLORIDE 20 MEQ ER TABLET PO (00:24)
[2024-04-06 01:18] VITALS: BP 114/74; PULSE 89; RESP 27; TEMP 36.4; O2SAT 100
--- NOTE | 2024-04-06 01:18 | ECG_ITS ---
Test Date: 2024-04-06 01:23:56 Measurements Intervals [place] Rate: 82 P: 20 [place]: 113 QRS: 15 QRSD: 89 T: 28 QT: 376 QTc: 441 Interpretive Statements SINUS RHYTHM WITH SHORT [place] INTERVAL LOW QRS VOLTAGE IN PRECORDIAL LEADS [QRS DEFLECTION < 1.0 mV IN CHEST LEADS] BORDERLINE ECG Compared to ECG 04/05/2024 21:32:40 QT INTERVAL IS SHORTENED Electronically Signed On 04-06-2024 14:59:27 CDT by Kartik Jacob M.D.
[2024-04-06 01:47] LABS: Troponin I < 0.012 ng/mL (0.000-0.034)
[2024-04-06 02:08] VITALS: BP 108/72; PULSE 78; RESP 14; O2SAT 96
== END 2024-04-06 02:11 | disposition home or self-care (01) ==
PROVIDERS: Emergency Provider Physician Assistant; PCP Family Medicine
DX: R00.2 Palpitations (principal); R00.0 Tachycardia, unspecified; R42 Dizziness and giddiness; E78.5 Hyperlipidemia, unspecified; K21.9 Gastro-esophageal reflux disease without esophagitis
CPT/HCPCS: 36415; 71046; 80053; 81001; 83735; 84484; 85025; 85380; 85610; 85730; 93005; 96360; 96361; 99284; A9270; J7030

== ENCOUNTER 2024-05-10 13:53 | Outpatient (CLI) | payer OTHER, SELFPAY ==
--- NOTE | 2024-05-10 14:12 | ECHO_ITS ---
Patient Info Name: Leila Lee Age: 49 years : 1975 Gender: Female Ht: 64 in Wt: 175 lbs BSA: 1.92 m2 HR: 64 bpm BP: 112 / 72 mmHg Technical Quality: Fair Exam Date: 05/10/2024 2:24 PM Exam Location: Echo Lab Patient Status: Outpatient Admit Date: 05/10/2024 Staff Ordering Physician: Aram Gongora DO Preschool Principal: Portia Byrd RDCS Attending Provider: Aram Gongora DO Referring Physician: Rolan MARQUEZ; Exam Type: CA echo doppler color flow Study Info Indications R06.09 - Other forms of dyspnea Complete two-dimensional, color flow and Doppler transthoracic echocardiogram is performed. Summary 1. Complete two-dimensional, color flow and Doppler transthoracic echocardiogram is performed. 2. Left ventricular chamber dimension is normal. 3. Left ventricular systolic function is normal, estimated at 60-65%. 4. The left ventricular diastolic function is normal. 5. E/e' 8 is minimally elevated. 6. There is mild mitral valve regurgitation. 7. There is trace tricuspid valve regurgitation. 8. No pulmonary hypertension, estimated pulmonary arterial systolic pressure is 25 mmHg. 9. There is trace pulmonic regurgitation. Left Ventricle E/e' 8 is minimally elevated. Left ventricular chamber dimension is normal. Left ventricular systolic function is normal, estimated at 60-65%. The left ventricular diastolic function is normal. Right Ventricle Right ventricular chamber dimension is normal. Right ventricular systolic function is normal. Left Atria Left atrial chamber dimension is normal. Right Atria Right atrial chamber dimension is normal. Aortic Valve The aortic valve is trileaflet. There is no aortic valve stenosis. There is no aortic valve regurgitation. Pulmonic Valve There is trace pulmonic regurgitation. Mitral Valve There is no mitral valve stenosis. There is mild mitral valve regurgitation. Tricuspid Valve There is trace tricuspid valve regurgitation. No pulmonary hypertension, estimated pulmonary arterial systolic pressure is 25 mmHg. Pericardium/Pleural There is no pericardial effusion. Inferior Vena Cava Normal inferior vena cava with >50% collapse upon inspiration consistent with normal right atrial pressure, 5 mmHg. Aorta The aortic root size at the sinus of Valsalva is normal. Left Ventricular Outflow Tract Name Value Normal LVOT 2D LVOT Diameter 1.9 cm LVOT Doppler LVOT Peak Gradient 5 mmHg LVOT Mean Gradient 3 mmHg LVOT VTI 23 cm LVOT VTI/AV VTI Ratio 0.9 LVOT Stroke Volume 63 ml LVOT CO 4.0 l/min LVOT CI 2.1 l/min/m2 Pulmonic Valve Name Value Normal PV Doppler PV Peak Gradient 3 mmHg PV Regurgitation Doppler
== END 2024-05-10 13:54 | disposition home or self-care (01) ==
LOC: ANHCARD 13:55
PROVIDERS: PCP Family Medicine; Visit Provider Internal Medicine Cardiovascular Disease
DX: R06.09 Other forms of dyspnea (principal); I34.0 Nonrheumatic mitral (valve) insufficiency
CPT/HCPCS: 93306

== ENCOUNTER 2024-08-09 08:07 | Outpatient (CLI) | payer OTHER, SELFPAY ==
--- NOTE | 2024-08-30 20:56 | P.SLEEP_ITS ---
Sleep Study Date of Study: 08/09/24 Ordering Provider: Aaron Beltre APRN Interpreting Physician: Ping Edwards MD Sleep Study Type: Polysomnogram Height: 1.63 m Weight: 79.379 kg Body Mass Index: 30.0 Neck Circumference (inches): 15 [place]: 2 Reason for Sleep Study Poor quality sleep, loud snoring, Known obstructive sleep apnea however was non compliant due to mask leaking and discomfort. She presents for sleep study to establish diagnosis and try to qualify for equipment. Sleep History Leila Lee is a 49-year-old woman who had a home sleep test on October 04, 2023 with an apnea-hypopnea index of 22.4 and desaturation to 62%. She also had elevated heart rate of 113 with suspected atrial fibrillation. The sleep doctor recommended a CPAP titration however the [facility] would not allow [facility] January 24, [facility]24. She had difficulties tolerating the auto PAP due to mask leaking and discomfort. After a trial period of 90 days, she was deemed non-compliant, and the machine was removed by the [employer]. She was referred to Sleep Medicine, was evaluated, and now presents for a split night study for another attempt at treatment. She did not meet criteria for a split night on Aug 09, 2024, so this was conducted as a basic polysomnogram. Her sleep history includes complaints of loud snoring, fatigue and excessive daytime sleepiness. She wants to be treated for her loud snoring so her can also get a good night of sleep. She never awakens from sleep short of breath. She occasionally wakes at night with heartburn, belching or coughing.??She constantly snores, and constantly snores loudly enough that others complain. She frequently has trouble sleeping when she has a cold. She never wakes up gasping for breath during the night. She never has breathing problems at night reported to her by others. She rarely sweats excessively at night. She rarely notices her heart pounding or beating irregularly during the night. She rarely falls asleep during the day. She never falls asleep involuntarily or while driving. She never experiences loss of muscle tone with strong emotion. She never feels paralyzed on waking or falling asleep. She rare ly experiences vivid dreams upon waking or falling asleep. She never feels afraid of going to sleep. She rarely has nightmares. She .rarely recalls her dreams. She occasionally has thoughts racing through her mind. She rarely feels sad or depressed. She occasionally feels anxiety. She never notices parts of her body jerk. She never kicks during the night. She never feels crawling or aching feelings in her legs. She never feels leg pain at night. She never has morning jaw pain, and never grinds her teeth at night. She never feels bothered by pain during the day, is never awakened by pain during the night. She never wakes up feeling stiff in the morning, never wakes feeling sore or achy in the morning. She never awakens with pain in her neck, spine, or joints. Normal bedtime is 10:30 p.m., falling asleep within 20 minutes, waking between 2 to 3 times at night, rolls over, goes to the bathroom, gets drink of water, gets TUMS if needed, checks the clock, returning to sleep within 5 minutes.. She wakes at 6:30 a.m., reports getting 6 hours of sleep per night. Her weekend schedule is similar, bedtime is 11:30 p.m. and she sleeps later, wakes between 8:30 am to 9:00 a.m. Sometimes she awakens due to having an extremely dry mouth. She feels drowsy for an hour after waking. She feels better in the afternoons compared to other times of day. She does not generally take naps. A short nap lasting 10-15 minutes is not refreshing. She only occasionally awakens feeling refreshed. She reports a 5 lb weight gain in the last year. Habits:??Tobacco: Never smoker Caffeine: 24-28 oz per day Alcohol: 1-2 per week Recreational substances: none [facility] Past Medical History Medical History (Updated 08/30/24 @ 21:23 by Ping Edwards MD) Obstructive sleep apnea Dyslipidemia Spontaneous x3 D&C required x2 GERD without esophagitis Vitamin D deficiency Prediabetes Surgical History Surgical History History of D&C (~08/2023) D&C hysteroscopy with myomectomy History of bilateral tubal ligation 2012 with History of D&C 2007 and 2012 deliv NOS-unsp X2 Family History Family History Father Hypertension Mother Thyroid disease Social History Social History (Updated 04/25/24 @ 09:53 by Brittani Weaver [facility]) Smoking status: Never smoker Second hand tobacco smoke exposure: No Alcohol intake: current Drinks per week: 3 Substance use: never Substance use type: does not use Do You Feel Safe in your Home?: Yes Lack of Transportation: No Lack of Food: Never True Current Housing: I Have Housing Concerned About Future Housing: No Difficulty Paying Gas/Electric Bills: No Difficulty Paying for Meds: No Currently Unemployed: No Education: Bachelor's Degree Difficulty w/ Childcare or Family Care: No Living arrangements: with family Occupation/Education: occupation Gender identity (if verbalized by the patient): Female Sexual Orientation (if Verbalized by the Patient): Straight or Heterosexual Spiritual care concerns: No Agree to blood products: Yes Medications Home Medications ?Medication ?Instructions ?Recorded ?Confirmed ?Type cholecalciferol (vitamin D3) 125 250 mcg PO .QOD 08/03/23 04/25/24 History mcg (5,000 unit) capsule loratadine 10 mg tablet (Claritin) 10 mg PO DAILY 08/24/23 04/25/24 History auto Pap and supplies #1 ea 10/25/23 04/25/24 Rx mecobalamin (vitamin B12) 1,000 1,000 mcg PO DAILY 04/09/24 04/25/24 History mcg chewable tablet omega 4-jcd-edn-fish oil 60 mg-90 1 cap PO DAILY 04/09/24 04/25/24 History mg-500 mg capsule (Fish Oil) omeprazole 20 mg capsule,delayed 20 mg PO DAILY #90 caps 05/15/24 Rx release eszopiclone 3 mg tablet 3 mg PO ONCE #1 tablet 05/25/24 Rx metoprolol succinate 25 mg 25 mg PO DAILY #90 tabs 07/02/24 Rx tablet,extended release 24 hr Sleep Procedure A full night polysomnogram using the [employer] multi-channel system recorded the standard physiologic parameters including EEG, EOG, submentalis EMG, anterior tibialis EMG, EKG, body position, nasal and oral airflow using nasal pressure sensor and thermistor. Respiratory parameters of chest and abdominal movements were recorded with Respiratory Inductance Plethysmography belts. Oxygen saturation was recorded by pulse oximetry. Video monitoring was also performed. Sleep stages, periodic limb movements, and EEG arousals were scored in 30 second epochs according to the criteria of the AASM Scoring Manual. The Apnea-Hypopnea Index was calculated using CMS guidelines for definition of hypopnea while scoring respiratory events. The patient took a sleep aid, as zopiclone 3 mg prior to lights out. She had acid reflux, and for this reason the tech gave her extra pillows, a total of 4 pillows to help reduce reflux symptoms. She did not meet criteria early enough in the night to start PAP titration therefore this was conducted as a full night basic nocturnal polysomnogram. Sleep Architecture The total recording time was 541.4 minutes. The total sleep time was 420.0 minutes. Sleep latency was 4.8 minutes. REM latency was 183.5 minutes. Sleep efficiency was 77.6%. The patient had 42 awakenings for an awakening index of 6.0. Wake after sleep onset time was 117.0 minutes. The patient spent 44.5 minutes, 10.6% of total sleep time in Stage N1. The patient spent 248.5 minutes, 59.2% in Stage N2. The patient spent 53.5 minutes, 12.7% in Stage N3. The patient spent 73.5 minutes, 17.5% in Stage REM sleep. Respiratory Analysis The patient had 37 hypopneas, 34 obstructive apneas, no mixed apneas, and mo central apneas for an overall Apnea Hypopnea Index of 10.0. The REM Apnea Hypopnea Index was 18.8. The NREM Apnea Hypopnea Index was 8.5. The patient had a Central Apnea Hypopnea Index of 0. There were no Respiratory Effort Related Arousals. The Respiratory Disturbance Index is 12.4 events per hour. There was no evidence of Umberto-Kinsey Respirations. The patient had a supine apnea- hypopnea index of 13.7, and a nonsupine apnea-hypopnea index of 9.1. Arousals There were 184 total arousals for an arousal index of 26.3. There were 66 spontaneous arousals for an index of 9.4. There were 68 arousals due to respiratory events for an index of 9.7. There were 21 arousals due to periodic limb movements for an index of 3.0. There were 29 arousals due to isolated limb movements for an index of 4.1. Periodic Limb Movements The patient had 35 isolated limb movements with an index of 5.0. The patient had 21 periodic limb movements with an index of 3.0. Patient had a total of 56 limb movements with a total limb movement index of 8.0. Oximetry Data The patient had an average oxygen saturation of 94.4% in sleep with a minimum oxygen saturation of 76% and a maximum oxygen saturation of 100%. The patient had 91 oxygen desaturations that were 4% or greater resulting in an Oxygen Desaturation Index of 13.0. The patient spent 18 minutes, 3.4% of total sleep time with an oxygen saturation below 88%. Snoring Profile Snoring was mild to moderate. Cardiac Profile EKG showed normal sinus rhythm, average pulse 84 beats per minute, minimum pulse 63 beats per minute, maximum pulse 110 beats per minute, no arrhythmia. EEG Profile Unremarkable, no evidence of seizures. Assessment and Plan Assessment and Plan (1) Obstructive sleep apnea: Code(s): G47.33 - Obstructive sleep apnea (adult) (pediatric) Status: Acute Assessment and Plan: This basic nocturnal polysomnogram on 08/09/2024 shows mild obstructive sleep a pnea, the apnea-hypopnea index was 10 using a 4% criteria, mild, and the apnea- hypopnea index was 15.9 using a 3% criteria, moderate severity, desaturation to 76%. She did not meet criteria early enough in the night so this was conducted as a basic nocturnal polysomnogram instead of a split night study. The patient meets criteria to start treatment with a cardiac comorbidity of arrhythmia. She failed auto PAP following a home sleep test. This patient should have a CPAP titration in the sleep lab to identify the optimum pressure. Another attempt using autoPAP is more than likely to lead to poor outcome, again. I recommend a CPAP titraiton in the sleep lab using a sleep aid and no naps during the day prior to arrival in the sleep lab the night of the titration. Data The data obtained during this sleep study is adequate for interpretation. Certification This sleep study has been reviewed by a board certified sleep medicine physician.
== END 2024-08-10 06:49 | disposition home health service (06) ==
LOC: ANHCSM 08:08
PROVIDERS: PCP Family Medicine; Visit Provider Nurse Practitioner Family
DX: G47.33 Obstructive sleep apnea (adult) (pediatric) (principal)
CPT/HCPCS: 95810

== ENCOUNTER 2025-07-29 10:20 | Outpatient (CLI) | payer OTHER, SELFPAY ==
--- NOTE | 2025-08-20 10:33 | WPDSLEEPSTUD ---
Sleep Study Date of Study: 07/29/25 Ordering Provider: Aaron Beltre APRN Interpreting Physician: Tessy Vicente DO Sleep Study Type: CPAP Titration Height: 1.63 m Weight: 83.461 kg Body Mass Index: 31.6 Neck Circumference (inches): 16 [place]: 2 Reason for Sleep Study Poor quality sleep, loud snoring, Known obstructive sleep apnea however was non compliant due to mask leaking and discomfort. She presents for sleep study to establish diagnosis and try to qualify for equipment. Sleep History Leila Lee is a 50-year-old woman who had a home sleep test on October 04, 2023 with an apnea-hypopnea index of 22.4 and desaturation to 62%. She also had elevated heart rate of 113 with suspected atrial fibrillation. The sleep doctor recommended a CPAP titration however the insurance would not allow it so the patient was issued an auto PAP on January 24, 2024. She had difficulties tolerating the auto PAP due to mask leaking and discomfort. After a trial period of 90 days, she was deemed non-compliant, and the machine was removed by the [employer]. She was referred to Sleep Medicine, was evaluated, and now presents for a split night study for another attempt at treatment. She did not meet criteria for a split night on Aug 09, 2024, so this was conducted as a basic polysomnogram. Her sleep history includes complaints of loud snoring, fatigue and excessive daytime sleepiness. She wants to be treated for her loud snoring so her can also get a good night of sleep. She never awakens from sleep short of breath. She occasionally wakes at night with heartburn, belching or coughing.??She constantly snores, and constantly snores loudly enough that others complain. She frequently has trouble sleeping when she has a cold. She never wakes up gasping for breath during the night. She never has breathing problems at night reported to her by others. She rarely sweats excessively at night. She rarely notices her heart pounding or beating irregularly during the night. She rarely falls asleep during the day. She never falls asleep involuntarily or while driving. She never experiences loss of muscle tone with strong emotion. She never feels paralyzed on waking or falling asleep. She rarely experiences vivid dreams upon waking or falling asleep. She never feels afraid of going to sleep. She rarely has nightmares. She .rarely recalls her dreams. She occasionally has thoughts racing through her mind. She rarely feels sad or depressed. She occasionally feels anxiety. She never notices parts of her body jerk. She never kicks during the night. She never feels crawling or aching feelings in her legs. She never feels leg pain at night. She never has morning jaw pain, and never grinds her teeth at night. She never feels bothered by pain during the day, is never awakened by pain during the night. She never wakes up feeling stiff in the morning, never wakes feeling sore or achy in the morning. She never awakens with pain in her neck, spine, or joints. Normal bedtime is 10:30 p.m., falling asleep within 20 minutes, waking between 2 to 3 times at night, rolls over, goes to the bathroom, gets drink of water, gets TUMS if needed, checks the clock, returning to sleep within 5 minutes.. She wakes at 6:30 a.m., reports getting 6 hours of sleep per night. Her weekend schedule is similar, bedtime is 11:30 p.m. and she sleeps later, wakes between 8:30 am to 9:00 a.m. Sometimes she awakens due to having an extremely dry mouth. She feels drowsy for an hour after waking. She feels better in the afternoons compared to other times of day. She does not generally take naps. A short nap lasting 10-15 minutes is not refreshing. She only occasionally awakens feeling refreshed. She reports a 5 lb weight gain in the last year. Habits:??Tobacco: Never smoker Caffeine: 24-28 oz per day Alcohol: 1-2 per week Recreational substances: none PMFSH Past Medical History Medical History Environmental allergies Family history of colonic polyps Vertigo (~03/2024) Resolved with vestibular rehab PAT (paroxysmal atrial tachycardia) Obstructive sleep apnea Dyslipidemia Spontaneous x3 D&C required x2 GERD without esophagitis Vitamin D deficiency Prediabetes Surgical History Surgical History History of D&C (~08/2023) D&C hysteroscopy with myomectomy History of bilateral tubal ligation 2012 with History of D&C 2007 and 2012 deliv NOS-unsp X2 Family History Family History Father Hypertension Mother Thyroid disease Social History Social History Smoking status: Never smoker Second hand tobacco smoke exposure: No Alcohol intake: current Drinks per week: 3 Substance use: never Substance use type: does not use Lack of Transportation: No Lack of Food: Never True Current Housing: I Have Housing Concerned About Future Housing: No Difficulty Paying Gas/Electric Bills: No Difficulty Paying for Meds: No Currently Unemployed: No Education: Bachelor's Degree Difficulty w/ Childcare or Family Care: No Living arrangements: with family Occupation/Education: occupation Gender identity (if verbalized by the patient): Female Sexual Orientation (if Verbalized by the Patient): Straight or Heterosexual Spiritual care concerns: No Agree to blood products: Yes Medications Home Medications ?Medication ?Instructions ?Recorded ?Confirmed ?Type loratadine 10 mg tablet (Claritin) 10 mg PO DAILY 08/24/23 06/27/25 History mecobalamin (vitamin B12) 1,000 1,000 mcg PO DAILY 04/09/24 06/27/25 History mcg chewable tablet cholecalciferol (vitamin D3) 125 See Rx Instructions PO DAILY 09/26/24 06/27/25 History mcg (5,000 unit) capsule omeprazole 20 mg capsule,delayed 20 mg PO DAILY #90 caps 06/05/25 06/27/25 Rx release Lean out See Rx Instructions .Route .COMPLEX 06/27/25 History omega 6-xbh-czr-fish oil 60 mg-90 2 cap PO DAILY 06/27/25 06/27/25 History mg-500 mg capsule (Fish Oil) metoprolol succinate 25 mg 25 mg PO DAILY #90 tabs 07/17/25 Rx tablet,extended release 24 hr amoxicillin 875 mg-potassium 1 tablet PO Q12H 7 days #14 tabs 08/20/25 Rx clavulanate 125 mg tablet estradiol 0.5 mg tablet mg 08/20/25 History prednisone 20 mg tablet 40 mg (2 x 20 mg) PO DAILY 5 days 08/20/25 Rx #10 tabs Sleep Procedure A full night CPAP Titration using the [employer] multi-channel system recorded the standard physiologic parameters including EEG, EOG, submentalis EMG, anterior tibialis EMG, EKG, body position, nasal and oral airflow using nasal pressure sensor and thermistor.? Respiratory parameters of chest and abdominal movements were recorded with Respiratory Inductance Plethysmography belts. Oxygen saturation was recorded by pulse oximetry. Video monitoring was also performed. Sleep stages, periodic limb movements, and EEG arousals were scored in 30 second epochs according to the criteria of the AASM Scoring Manual. The Apnea-Hypopnea Index was calculated using [facility] guidelines for definition of hypopnea with 4% O2 desaturations while scoring respiratory events. Sleep Architecture The total recording time was 472.1 minutes.? The total sleep time was 440.0 minutes. Sleep latency was 9.9 minutes. REM latency was 59.0 minutes. Sleep efficiency was 93.2%. The patient had 28 awakenings for an awakening index of 3.8. Wake after Sleep Onset time was 22.0 minutes. The patient spent 14.5 minutes, 3.3% of total sleep time in Stage N1. The patient spent 253.5 minutes, 57.6% in Stage N2. The patient spent 54.5 minutes, 12.4% in Stage N3. The patient spent 117.5 minutes, 26.7% in Stage REM. Respiratory Analysis The patient had 18 hypopneas, 1 mixed apnea and 6 central apneas for an overall Apnea Hypopnea Index of 3.4 events per hour. The REM Apnea Hypopnea Index was 2.6. The NREM Apnea Hypopnea Index was 3.7. The patient had a Central Apnea Hypopnea Index of 0.8. There was no evidence of Umberto-Kinsey Respirations. The patient was started on CPAP 5 cm H2O and titrated to CPAP 11 cm H2O. The patient was able to fall asleep starting on CPAP 5 cm H2O. The patient was able to achieve REM sleep starting on CPAP 8 cm H2O. The patient was able to achieve a residual AHI less than 5 with both NREM and REM sleep in the supine position on the final pressure setting. On CPAP 11 cm H2O, the patient spent 143.5 minutes in NREM and 95.5 minutes in REM with 3 central apneas, 1 mixed apnea and 3 hypopneas, resulting in an AHI of 1.8. The patient had a sleep efficiency of 95.2% on this pressure setting. Arousals There were 86 total arousals for an arousal index of 11.7. There were 42 spontaneous arousals for an index of 5.7. ?There were 12 arousals due to respiratory events for an index of 1.6. There were 9 arousals due to periodic limb movements for an index of 1.2.? There were 23 arousals due to isolated limb movements for an index of 3.1. Periodic Limb Movements The patient had 46 isolated limb movements with an index of 6.3. The patient had 15 periodic limb movements with index of 2.0. Patient had a total of 61 limb movements with a total limb movement index of 8.3. Oximetry Data The patient had an average oxygen saturation of 97.5% in sleep with a minimum oxygen saturation of 89.0% and a maximum oxygen saturation of 100.0%. The patient had 20 oxygen desaturations that were 4% or greater resulting in an Oxygen Desaturation Index of 2.7.? The patient spent 0 minutes of total sleep time with an oxygen saturation below 88%. Snoring Profile Moderate snoring was present in the beginning of the study. The snoring resolved once the patient was titrated to CPAP 11 cm H2O. Cardiac Profile The EKG showed normal sinus rhythm. No arrhythmias or premature beats were seen. The patient had an average pulse rate of 70.8 bpm with a minimum pulse rate of 56.0 bpm and a maximum pulse rate of 92.0 bpm. ? EEG Profile No signs of seizure activity seen. Assessment and Plan Assessment and Plan (1) Obstructive sleep apnea: Code(s): G47.33 - Obstructive sleep apnea (adult) (pediatric) Status: Acute Assessment and Plan: The patient was started on CPAP 5 cm H2O and titrated to CPAP 11 cm H2O. The patient's sleep apnea resolved on the final pressure setting. I recommend that the patient be prescribed CPAP 11 cm H2O, size medium [employer] AirTouch F20 full face mask, CPAP filters/heated tubing and heated humidity. This should be used with all episodes of sleep.? Compliance should be reviewed within 31-90 days of starting therapy for usage greater than 4 hours per night greater than 70% of the nights. The patient should be asked about symptoms such as?excessive daytime sleepiness, quality of sleep, decreased nocturia, increased?mental functioning such as memory, mood, and concentration. Data The data obtained during this sleep study is adequate for interpretation. Certification This sleep study has been reviewed by a board certified sleep medicine physician.
[2025-08-26 14:38] VITALS: BMI 31.6
== END 2025-07-30 06:42 | disposition home or self-care (01) ==
PROVIDERS: PCP Family Medicine; Visit Provider Nurse Practitioner Family
DX: G47.33 Obstructive sleep apnea (adult) (pediatric) (principal)
CPT/HCPCS: 95811

== ENCOUNTER 2025-08-20 14:00 | Emergency (ER) | payer OTHER, SELFPAY ==
[2025-08-20 14:16] VITALS: BP 128/69; PULSE 86; RESP 16; TEMP 36.4; O2SAT 100
--- NOTE | 2025-08-20 15:32 | ED.URI ---
HPI - URI/Sore Throat General Chief Complaint: Upper Respiratory Infection Stated Complaint: Congestion Time Seen by Provider: 08/20/25 14:45 Source: patient and RN notes reviewed Mode of arrival: ambulatory Limitations: no limitations History of Present Illness HPI Narrative: 50-year-old female patient presents [facility] for upper respiratory symptoms for little over 1 week. Patient reports cough, congestion, mucopurulent nasal drainage, voice hoarseness. Patient denies any other upper respiratory symptoms, fevers and body aches, chills, nausea vomiting, chest pain, difficulty breathing every other symptoms. Patient has tried Mucinex up with symptoms without relief. Related Data Home Medications ?Medication ?Instructions ?Recorded ?Confirmed ?Last Taken ?Type loratadine 10 mg tablet (Claritin) 10 mg PO DAILY 08/24/23 06/27/25 Unknown History mecobalamin (vitamin B12) 1,000 1,000 mcg PO DAILY 04/09/24 06/27/25 Unknown History mcg chewable tablet cholecalciferol (vitamin D3) 125 See Rx Instructions PO DAILY 09/26/24 06/27/25 Unknown History mcg (5,000 unit) capsule Lean out See Rx Instructions .Route .COMPLEX 06/27/25 Unknown History omega 2-ouq-tzg-fish oil 60 mg-90 2 cap PO DAILY 06/27/25 06/27/25 Unknown History mg-500 mg capsule (Fish Oil) estradiol 0.5 mg tablet mg 08/20/25 Unknown History Allergies Allergy/AdvReac Type Severity Reaction Status Date / Time propoxyphene AdvReac Mild NAUSEA AND Verified 08/20/25 14:18 VOMITING Review of Systems Review of Systems: CONSTITUTIONAL: Denies fever, chills, or sweats. EYES: Denies visual changes, redness, or discharge. ENT: Denies rhinorrhea, sore throat, dysphagia, or otalgia. Positive for congestion and voice hoarseness. CARDIOVASCULAR: Denies chest pain, palpitations, or edema. RESPIRATORY: Positive for cough. Negative for wheezing or dyspnea. GASTROINTESTINAL: Denies abdominal pain, nausea, vomiting, or diarrhea. GENITOURINARY: Denies dysuria or hematuria. SKIN: Denies rash or itching. MUSCULOSKELETAL: Denies back pain, joint pain, or myalgia. NEUROLOGIC: Denies headache, numbness, or weakness. PSYCHIATRIC: Denies anxiety or depression. All other systems reviewed are negative, except as documented in HPI. [facility] Past Medical History Medical History Environmental allergies Family history of colonic polyps Vertigo (~03/2024) Resolved with vestibular rehab PAT (paroxysmal atrial tachycardia) Obstructive sleep apnea Dyslipidemia Spontaneous x3 D&C required x2 GERD without esophagitis Vitamin D deficiency Prediabetes Surgical History Surgical History History of D&C (~08/2023) D&C hysteroscopy with myomectomy History of bilateral tubal ligation 2013 with History of D&C 2007 and 2012 deliv NOS-unsp X2 Family History Family History Father Hypertension Mother Thyroid disease Social History Social History Smoking status: Never smoker Second hand tobacco smoke exposure: No Alcohol intake: current Drinks per week: 3 Substance use: never Substance use type: does not use Lack of Transportation: No Lack of Food: Never True Current Housing: I Have Housing Concerned About Future Housing: No Difficulty Paying Gas/Electric Bills: No Difficulty Paying for Meds: No Currently Unemployed: No Education: Bachelor's Degree Difficulty w/ Childcare or Family Care: No Living arrangements: with family Occupation/Education: occupation Gender identity (if verbalized by the patient): Female Sexual Orientation (if Verbalized by the Patient): Straight or Heterosexual Spiritual care concerns: No Agree to blood products: Yes Comments At the time of my signature, I reviewed and agree with the nursing past medical, surgical, social, and family history. There is no relevant family history pertinent to the patient complaint. Exam Narrative: GENERAL: This is a well-nourished, well-developed adult, in no apparent distress. They are non ill-appearing, nontoxic appearing. HEAD: normocephalic, atraumatic. EYES: Sclera clear/white. Conjunctiva normal. Vision is grossly intact. Extraocular movements intact EARS: External ears normal, auditory canals clear and without drainage, TMs normal without perforation. Hearing grossly intact. NOSE: External nose normal with no obvious nasal discharge, nasal turbinates erythematous. no rhinorrhea. THROAT: Mucous membranes moist, posterior pharynx erythematous with PND. Uvula midline. NECK: Neck supple, non-tender without lymphadenopathy, masses or thyromegaly. CARDIOVASCULAR: Regular rate and rhythm without murmurs, gallops, or rubs. RESPIRATORY: Clear to auscultation. Breath sounds equal bilaterally. No wheezes, rales, or rhonchi. SKIN: warm, Dry, intact with no suspicious lesions or rash, good texture and turgor. NEURO: awake, alert, and oriented to person, place and time. There were no obvious focal neurologic abnormalities. EXTREMITIES: No joint tenderness, effusion, or edema noted. BACK: Nontender without deformity. Course Course Level of Care: Express Care Visit Vital Signs Vital signs: Vital Signs Temperature 97.5 F L 08/20/25 14:16 Pulse Rate 86 08/20/25 14:16 Respiratory Rate 16 08/20/25 14:16 Blood Pressure 128/69 08/20/25 14:16 Pulse Oximetry 100 08/20/25 14:16 Temperature 97.5 F L 08/20/25 14:16 Pulse Rate 86 08/20/25 14:16 Respiratory Rate 16 08/20/25 14:16 Blood Pressure 128/69 08/20/25 14:16 Pulse Oximetry 100 08/20/25 14:16 MDM MDM Narrative Medical decision making narrative: Patient likely has bacterial sinusitis given length of symptoms. Will treat with Augmentin. Given patient's voice hoarseness will give her prednisone. Discussed physical exam findings. Advised supportive measures and signs/symptoms to go to the ER. Pt is appropriate for outpt treatment and f/u. Differential Diagnosis Differential Diagnosis: Differential diagnostic considerations for upper respiratory infection include upper respiratory infection, croup, otitis media, sinusitis, viral infection, bronchitis, influenza, pharyngitis, strep, uvulitis. Critical Care Time Critical Care Time Critical Care Time: No Discharge Plan Discharge Clinical Impression: Sinusitis Qualifiers: Sinusitis location: unspecified location Chronicity: acute Recurrence: non-recurrent Qualified Code(s): J01.90 - Acute sinusitis, unspecified Patient Disposition: Home Condition: Stable Instructions: Antibiotic Form, Sinusitis (ED) Additional Instructions: Take the antibiotics as directed and complete the course even if you start to feel better. Take the prednisone as directed. You may use a Neti pot saline rinse 3 times a day with lukewarm distilled water Continue to take Tylenol or Motrin as needed for pain or fevers. Use a humidifier or vaporizer at night. Drink plenty of water. 8-10 glasses per day. Use flonase 2 times per day for 5 days then as needed Take mucinex 2 times per day and be sure to take with 8oz of water. Follow up with Primary provider in 3-5 days Please go to the ER if he develops any difficulty breathing, chest pain, vomiting, weakness, confusion, worsening symptoms, or any other serious concerns Patient Language: Vietnamese Prescriptions: New prednisone 20 mg tablet 40 mg PO DAILY 5 Days Qty: 10 0RF amoxicillin-pot clavulanate 875-125 mg tablet 1 tablet PO Q12H 7 Days Qty: 14 0RF No Action estradiol 0.5 mg tablet cholecalciferol (vitamin D3) 125 mcg (5,000 unit) capsule See Rx Instructions PO DAILY Rx Instructions: 1 cap and 2 caps on alternate day orally daily; mecobalamin (vitamin B12) 1,000 mcg tablet,chewable 1,000 mcg PO DAILY omega 4-hbx-uft-fish oil [Fish Oil] 60-90-500 mg capsule 2 cap PO DAILY Lean out See Rx Instructions .ROUTE .COMPLEX Rx Instructions: takes with meals; loratadine [Claritin] 10 mg Tablet 10 mg PO DAILY omeprazole 20 mg capsule,delayed release(DR/EC) 20 mg PO DAILY Qty: 90 1RF metoprolol succinate 25 mg tablet extended release 24 hr 25 mg PO DAILY Qty: 90 1RF Follow-up/Referrals: Agustin Gómez MD [Primary Care Provider, [facility]] Time of Disposition: 15:01
== END 2025-08-20 15:04 | disposition home or self-care (01) ==
PROVIDERS: PCP Family Medicine
DX: J01.90 Acute sinusitis, unspecified (principal); E78.5 Hyperlipidemia, unspecified; K21.9 Gastro-esophageal reflux disease without esophagitis; R73.03 Prediabetes; E55.9 Vitamin D deficiency, unspecified
CPT/HCPCS: 99213; G0463